=== PATIENT | male | born 1970 | race Caucasian/White ===

== ENCOUNTER 2022-07-05 12:01 | Emergency (ER) | payer MEDICAID ==
[~2022-07-05] VITALS: Ht 177.8 cm; Wt 108.9 kg
--- NOTE | 2022-07-05 12:05 | NUR ---
52 YRSE ALINE CAME BY [facility] C/O PAIN ON RT KNEE S/P FALL DOWN PT ONE HOURE
--- NOTE | 2022-07-05 12:25 | NUR ---
SEEN BY DR. COLLINS
[2022-07-05] MEDS ORDERED: BACI/NEOM/POLY B OINT PKT 1 UDPKT PACKET ONE (12:42)
--- NOTE | 2022-07-05 12:47 | NUR ---
X RAY DONE AT BED SIDE
[2022-07-05] MEDS ORDERED: BACI/NEOM/POLY B OINT PKT 1 UDPKT PACKET TP ONE (13:00)
[2022-07-05 13:41] VITALS: BP 113/72
--- NOTE | 2022-07-05 13:41 | NUR ---
Patient discharged to home in stable condition. Written and verbal after care instructions given. Patient verbalizes understanding of instruction.
[2022-07-06] MEDS ORDERED: ALBU18HF2 IH ×2 (08:13→12:53)
[2022-07-06] MEDS ORDERED: QUET400T53 PO ×2 (08:13→12:53)
[2022-07-06] MEDS ORDERED: HYDR-3980 PO (08:13)
[2022-07-06] MEDS ORDERED: LAMO200T52 PO ×2 (08:13→12:53)
[2022-07-06] MEDS ORDERED: PROP10TA68 PO ×2 (08:13→12:53)
== END 2022-07-05 13:41 | disposition home or self-care (01) ==
LOC: ER 12:05
DX: S80.212A Abrasion, left knee, initial encounter (principal); S80.211A Abrasion, right knee, initial encounter; S00.81XA Abrasion of other part of head, initial encounter; M25.562 Pain in left knee; M25.561 Pain in right knee; G89.29 Other chronic pain; F31.9 Bipolar disorder, unspecified; W18.30XA Fall on same level, unspecified, initial encounter; Y93.89 Activity, other specified; Y92.89 Other specified places as the place of occurrence of the external cause; Y99.8 Other external cause status
CPT/HCPCS: 99283; 73564 ×2; A6403

== ENCOUNTER 2022-07-05 15:32 | Inpatient (IN) | payer MEDICAID ==
[~2022-07-05] VITALS: Ht 172.7 cm; Wt 108.9 kg
[2022-07-05 16:16] LABS: BASOPHILS % (AUTO) 0.3 % (0.0-2.0); EOSINOPHILS % (AUTO) 0.6 % (0.0-6.0); HEMATOCRIT 42 % (39-51); HEMOGLOBIN 14.1 g/dL (13.5-17.5); LYMPHOCYTES # (AUTO) 1.1 K/uL (0.8-4.8); LYMPHOCYTES % (AUTO) 14.1 % (20.0-44.0); MEAN CORPUSCULAR HGB CONC 34 g/dl (31.0-36.0); MEAN CORPUSCULAR VOLUME 89 fL (80-96); MONOCYTES # (AUTO) 0.6 K/uL (0.1-1.30); MONOCYTES % (AUTO) 7.4 % (2.0-12.0); NEUTROPHILS # (AUTO) 6.3 K/uL (1.8-8.9); NEUTROPHILS % (AUTO) 77.6 % (43.0-81.0); PLATELET COUNT (AUTO) 222 K/uL (150-450); RED BLOOD CELL COUNT(AUTO) 4.71 MIL/uL (4.5-6.0); WHITE BLOOD COUNT (AUTO) 8.1 K/uL (4.3-11.0)
[2022-07-05 16:23] LABS: CALCIUM, SERUM 8.6 mg/dL (8.5-10.1); CREATININE 1.2 mg/dL (0.6-1.3); POTASSIUM 3.8 mmol/L (3.5-5.1)
--- NOTE | 2022-07-05 16:24 | NUR ---
[id number] FROM HOME RECENTLY DISCHARGE, PER EMS REPORT NEIGHBOR CALLED WHEN SAW PATIENT CANNOT GET UP THE STAIRS, PT STS HIS KNEES GAVE UP. VITALS ARE WITHIN NORMAL LIMITS.
--- NOTE | 2022-07-05 16:29 | NUR ---
MANDI Chauhan FA 18G. LABS DRAWN AND SENT.
--- NOTE | 2022-07-05 16:30 | NUR ---
COVID SWAB COLLECTED AND SENT
[2022-07-05] MEDS ORDERED: HYDROCODONE/APAP 5/325MG TABLET PO PRN (18:00)
[2022-07-05] MEDS ORDERED: ONDANSETRON HCL/PF 4 MG/2 ML VIAL IVP PRN (18:00)
[2022-07-05] MEDS ORDERED: MAGNESIUM HYDROXIDE 30 ML UDC PO PRN (18:00)
[2022-07-05] MEDS ORDERED: Z GUARD REMEDY 4 OZ OINT TP PRN (18:00)
[2022-07-05] MEDS ORDERED: ACETAMINOPHEN 325 MG TABLET PO PRN (18:00)
[2022-07-05] MEDS ORDERED: IV NS 0.9% 1,000 ML IV PRN (18:00)
[2022-07-05] MEDS ORDERED: MAG HYDROX/AL HYDROX/SIMETH 30 ML UDC PO PRN (18:00)
--- NOTE | 2022-07-05 19:15 | NUR ---
RECEIVED REPORT FROM YONATHAN RODRÍGUEZ. PATIENT IS A FREQUENT MARILYN FROM HOME. PATIENT IS AAOX4, COMPLAINING OF WEAKNESS IN BILATERAL LOWER EXTREMITIES, WITH PERIPHERAL LINE ON RIGHT FA USING G18. VITALS CHECKED. PATIENT FOR ADMISSION. WAITING FOR EPIC
--- NOTE | 2022-07-05 20:00 | NUR ---
DINNER SERVED ON ASPIRATION PRECAUTION
--- NOTE | 2022-07-05 23:00 | NUR ---
ASSISTED PATIENT USING URINAL TO URINATE
--- NOTE | 2022-07-06 00:20 | NUR ---
PATIENT IS SLEEPING. ADDITIONAL WARM BLANKET PROVIDED.
[2022-07-06 04:42] LABS: BASOPHILS % (AUTO) 0.5 % (0.0-2.0); EOSINOPHILS % (AUTO) 2.5 % (0.0-6.0); HEMATOCRIT 42 % (39-51); HEMOGLOBIN 14.1 g/dL (13.5-17.5); LYMPHOCYTES # (AUTO) 1.1 K/uL (0.8-4.8); LYMPHOCYTES % (AUTO) 16.3 % (20.0-44.0); MEAN CORPUSCULAR HGB CONC 34 g/dl (31.0-36.0); MEAN CORPUSCULAR VOLUME 89 fL (80-96); MONOCYTES # (AUTO) 0.6 K/uL (0.1-1.30); MONOCYTES % (AUTO) 7.9 % (2.0-12.0); NEUTROPHILS # (AUTO) 5.1 K/uL (1.8-8.9); NEUTROPHILS % (AUTO) 72.8 % (43.0-81.0); PLATELET COUNT (AUTO) 209 K/uL (150-450); RED BLOOD CELL COUNT(AUTO) 4.65 MIL/uL (4.5-6.0)
[2022-07-06 05:03] LABS: ALBUMIN 3.4 g/dL (3.4-5.0); BILIRUBIN,TOTAL 0.8 mg/dL (0.2-1.0); CALCIUM, SERUM 8.5 mg/dL (8.5-10.1); CREATININE 1.1 mg/dL (0.6-1.3); MAGNESIUM 2.3 mg/dL (1.8-2.4); POTASSIUM 4.1 mmol/L (3.5-5.1)
[2022-07-06 05:18] LABS: THYROID STIMULATING HORMONE 0.925 uIU/mL (0.358-3.74)
--- NOTE | 2022-07-06 05:31 | NUR ---
WARM WET TOWEL PROVIDED FOR PATIENT PER REQUEST
--- NOTE | 2022-07-06 06:32 | NUR ---
PT IS AWAKE, SITTING ON BED. REFUSED TO SCOOT BACK AND LIE DOWN IN BED DESPITE WARNING THAT HE MIGHT FALL AGAIN. VITALS CHECKED.
[2022-07-06] MEDS ORDERED: PANTOPRAZOLE 40 MG TABLET.DR PO SCH (07:30)
--- NOTE | 2022-07-06 07:51 | NUR ---
BED 325-2
[2022-07-06 08:00] VITALS: BP 126/70
--- NOTE | 2022-07-06 08:00 | NUR ---
BREAKFAST TRAY PROVIDED, TOLERATED WELL
--- NOTE | 2022-07-06 08:02 | NUR ---
REPORT GIVEN TO NURSE SLOANE FOR ЮЛИЯ
[2022-07-06] MEDS ORDERED: PROP10TA68 PO ×2 (08:13→12:53)
[2022-07-06] MEDS ORDERED: QUET400T53 PO ×2 (08:13→12:53)
[2022-07-06] MEDS ORDERED: LAMO200T52 PO ×2 (08:13→12:53)
[2022-07-06] MEDS ORDERED: HYDR-3980 PO (08:13)
[2022-07-06] MEDS ORDERED: ALBU18HF2 IH ×2 (08:13→12:53)
--- NOTE | 2022-07-06 08:30 | NUR ---
TRANSFERRED TO BED 325 IN STABLE CONDITION
--- NOTE | 2022-07-06 09:00 | NUR ---
MS RN ADMITTING NOTES PATIENT ADMITTED TO UNIT VIA GURNEY, BILATERAL KNEE ABRASIONS NOTED AND PHOTOS TAKEN, WOUND TREATMENT PERFORMED. PATIENT A/O X4 , ABLE TO MAKE NEEDS KNOWN, AMBULATORY. TOLERATING WELL ON ROOM AIR. PATIENT WITH R AC # 20 SL CLEAN, INTACT, AND FLUSHING WELL. SAFETY MEASURES IN PLACE: BED IN LOWEST LOCKED POSITION, SIDE RAILS UP X 2, CALL LIGHT WITHIN REACH. WILL CONTINUE TO MONITOR.
--- NOTE | 2022-07-06 14:00 | NUR ---
MS UNIFORM CAP OPERATOR NOTES PATIENT MADE AWARE OF MD DISCHARGE ORDERS AND INSTRUCTIONS. PATIENT VERBALIZED UNDERSTANDING AND SIGNED MD DISCHARGE INSTRUCTIONS PAPERWORK. PATIENT VERBALIZED POSSESSION OF ALL BELONGINGS AND SIGNED BELONGINGS SHEET. PATIENT ID BAND AND IV LINE REMOVED. PROVIDED WITH ALL DISCHARGE PAPERWORK. PATIENT TRANSFERRED OFF OF UNIT VIA WHEELCHAIR ACCOMPANIED BY [employer] WITHOUT INCIDENT. LEFT WITH A NEW WALKER AND A BUS PASS. STABLE AT TIME OF DISCHARGE.
== END 2022-07-06 15:00 | disposition home health service (06) | DRG 58 ==
LOC: ER 16:21 → TRANSITION 18:58 → MED 07-06 08:06
PROVIDERS: ADMIT Registered Nurse; ATTEND Registered Nurse
DX: R26.9 Unspecified abnormalities of gait and mobility (principal); S81.011A Laceration without foreign body, right knee, initial encounter; R29.6 Repeated falls; G89.4 Chronic pain syndrome; Z20.822 Contact with and (suspected) exposure to COVID-19; W01.0XXA Fall on same level from slipping, tripping and stumbling without subsequent striking against object, initial encounter; Z91.81 History of falling; Y92.89 Other specified places as the place of occurrence of the external cause; S00.81XA Abrasion of other part of head, initial encounter; X58.XXXS Exposure to other specified factors, sequela; S80.212A Abrasion, left knee, initial encounter; F31.9 Bipolar disorder, unspecified; Z86.718 Personal history of other venous thrombosis and embolism; S87.02XS Crushing injury of left knee, sequela; M25.562 Pain in left knee; M19.90 Unspecified osteoarthritis, unspecified site; E66.01 Morbid (severe) obesity due to excess calories; Z68.34 Body mass index [BMI] 34.0-34.9, adult; R60.0 Localized edema; F12.90 Cannabis use, unspecified, uncomplicated; V89.2XXS Person injured in unspecified motor-vehicle accident, traffic, sequela
CPT/HCPCS: 36415; 80048-TC; 80053-TC; 83735-TC; 84100-TC; 84443-TC; 85025-TC; 97116-TC; 97530-TC; C9803; G0378; J7030